=== PATIENT | female | born 1935 | race Two or more races ===

== ENCOUNTER 2021-09-09 22:51 | Inpatient (IN) | payer OTHER ==
[~2021-09-09] VITALS: Ht 152.4 cm; Wt 68.9 kg
--- NOTE | 2021-09-09 23:15 | NUR ---
SUPERVISOR ESTIMATOR AND DRAFTER NOTES PT ARRIVED VIA GURNEY. VS 149/99 HR89, TEMP 100.8 ON 2L OF 02 SAT 97% PT ALSO NOTED WITH COUGH.PT A/O X4 UKRAINIAN SPEAKING ONLY. IV ACCESS ON THE LAC AND RAC 320G S/L. PT SKIN IS WARM TOT HE TOUCH NOTED PT WITH SHIVERING. COOLING MEASURES PROVIDED. DUE TO COVID LIKE SYMPTOMS DR SHAFFER ORDERED PT TO BE TRANSFERRED TO [facility] FOR RULE OUT. WILL ENDORSE CARE TO [facility] NURSE.
[2021-09-09] MEDS ORDERED: ZOLPIDEM TARTRATE 5 MG TABLET PO PRN (23:30)
[2021-09-09] MEDS ORDERED: ONDANSETRON HCL/PF 4 MG/2 ML VIAL IVP PRN (23:30)
[2021-09-09] MEDS ORDERED: MAGNESIUM HYDROXIDE 30 ML UDC PO PRN (23:30)
[2021-09-09] MEDS ORDERED: Z GUARD REMEDY 4 OZ OINT TP PRN (23:30)
[2021-09-09] MEDS ORDERED: MAG HYDROX/AL HYDROX/SIMETH 30 ML UDC PO PRN (23:30)
[2021-09-10 00:05] LABS: BASOPHILS % (AUTO) 0.2 % (0.0-2.0); HEMATOCRIT 40 % (33-45); LYMPHOCYTES # (AUTO) 0.5 K/uL (0.8-4.8); LYMPHOCYTES % (AUTO) 2.7 % (20.0-44.0); MEAN CORPUSCULAR HGB CONC 33 g/dl (31.0-36.0); MEAN CORPUSCULAR VOLUME 94 fL (82-100); MONOCYTES # (AUTO) 1.1 K/uL (0.1-1.30); MONOCYTES % (AUTO) 5.9 % (2.0-12.0); NEUTROPHILS # (AUTO) 17.2 K/uL (1.8-8.9); NEUTROPHILS % (AUTO) 91.2 % (43.0-81.0); PLATELET COUNT (AUTO) 157 K/uL (150-450); RED BLOOD CELL COUNT(AUTO) 4.21 MIL/uL (4.0-5.2); WHITE BLOOD COUNT (AUTO) 18.8 K/uL (4.3-11.0)
[2021-09-10 00:10] VITALS: BP 124/63
[2021-09-10] MEDS ORDERED: IV NS 0.9% 1,000 ML IV ONE (00:30)
[2021-09-10] MEDS ORDERED: LEVOFLOXACIN 500 MG /D5W 100ML 100 ML IV ONE (00:34)
[2021-09-10 00:44] LABS: ALANINE AMINOTRANSFERASE 572 U/L (12-78); ALBUMIN 2.5 g/dL (3.4-5.0); ALKALINE PHOSPHATASE 222 U/L (46-116); ASPARTATE AMINOTRANSFERASE 487 U/L (15-37); BILIRUBIN,TOTAL 3.4 mg/dL (0.2-1.0); CALCIUM, SERUM 7.6 mg/dL (8.5-10.1); CARBON DIOXIDE 26 mmol/L (21-32); CHLORIDE 101 mmol/L (98-107); CREATININE 0.8 mg/dL (0.6-1.3); GLUCOSE 135 mg/dL (74-106); LIPASE 35 U/L (73-393); POTASSIUM 3.7 mmol/L (3.5-5.1); SODIUM SERUM 134 mmol/L (136-145); TOTAL PROTEIN, SERUM 5.9 g/dL (6.4-8.2); UREA NITROGEN, BLOOD 10 mg/dL (7-18)
--- NOTE | 2021-09-10 00:51 | NUR ---
RN NOTE 0005 PT AWAKE AOX3, TURKISH SPEAKING. DENIES ANY SOB. ON O2 AT 2L SATING 98%. NOT IN ANY DISTRESS. PT STATES CHEST PAIN IS BETTER. SKIN INTACT. VS WNL. IV ON RAC AND LAC PATENT AND INTACT. HOOKED TO TELE MONITOR SR WITH OCCASIONAL PVCS HR 96. DR SHAFFER AT BEDSIDE. ORIENTED PT TO BED OPERATION AND CALL LIGHT. COVID PRECAUTION IN PLACE. WILL CONTINUE TO MONITOR.
[2021-09-10] MEDS: LEVOFLOXACIN 500 MG /D5W 100ML 500 MG in PREMIX 1 EA IV SCH (01:51)
[2021-09-10] MEDS: ENOXAPARIN SODIUM 40 MG/0.4 ML DISP.SYRIN SQ SCH ×2 (01:52→20:21)
--- NOTE | 2021-09-10 03:16 | NUR ---
COVID RAPID POSITIVE. NOTIFIED DR SHAFFER.
[2021-09-10 04:00] VITALS: BP 105/50
--- NOTE | 2021-09-10 06:31 | NUR ---
RN NOTE SPOKE TO PTS IRIS BUTCHER, UPDATES WITH PT CONDITION. PER SON, PT VACCINATED 4X WITH MODERNA
[2021-09-10 06:33] LABS: BASOPHILS % (AUTO) 0.2 % (0.0-2.0); EOSINOPHILS % (AUTO) 0.3 % (0.0-6.0); HEMATOCRIT 38 % (33-45); HEMOGLOBIN 12.4 g/dL (11.5-14.8); LYMPHOCYTES # (AUTO) 1.1 K/uL (0.8-4.8); LYMPHOCYTES % (AUTO) 6.6 % (20.0-44.0); MEAN CORPUSCULAR HGB CONC 33 g/dl (31.0-36.0); MEAN CORPUSCULAR VOLUME 95 fL (82-100); MONOCYTES # (AUTO) 0.7 K/uL (0.1-1.30); MONOCYTES % (AUTO) 4.3 % (2.0-12.0); NEUTROPHILS # (AUTO) 15.3 K/uL (1.8-8.9); NEUTROPHILS % (AUTO) 88.6 % (43.0-81.0); PLATELET COUNT (AUTO) 156 K/uL (150-450); RED BLOOD CELL COUNT(AUTO) 3.98 MIL/uL (4.0-5.2); WHITE BLOOD COUNT (AUTO) 17.3 K/uL (4.3-11.0)
[2021-09-10 07:01] LABS: CARBON DIOXIDE 26 mmol/L (21-32); CHLORIDE 104 mmol/L (98-107); CREATININE 0.7 mg/dL (0.6-1.3); GLUCOSE 107 mg/dL (74-106); MAGNESIUM 1.9 mg/dL (1.8-2.4); PHOSPHORUS 3.8 mg/dL (2.5-4.9); POTASSIUM 3.7 mmol/L (3.5-5.1); SODIUM SERUM 139 mmol/L (136-145); UREA NITROGEN, BLOOD 9 mg/dL (7-18)
--- NOTE | 2021-09-10 07:08 | NUR ---
RN NOTE PT WATCHING TV NOT IN ANY DISTRESS. DENIES ANY CHEST PAIN AT THIS TIME. TOLERATING O2 AT 2L. AFEBRILE SINCE ADMITTED. ON IVFLUIDS OF NS AT 75ML/HR. INFUSING WELL. CALL LIGHT WITHIN REACH AT ALL TIMES, ISOLATION PRECAUTION MAINTAINED. WILL ENDORSE TO NEXT SHIFT NURSE FOR VAL.
--- NOTE | 2021-09-10 07:45 | NUR ---
RN OPENING NOTE PATIENT AWAKE IN BED RESTING, A/O X4. NO S/S OF PAIN NOTED AT THIS TIME. ON 2L OXYGEN, NO DISTRESS OR SHORTNESS OF BREATH NOTED. IV ACCESS RAC #20G, LAC #20G, INTACT, PATENT AND FLUSHING WELL. FALL AND SAFETY MEASURES IN PLACE, BED ALARM ON BED IN LOW AND LOCK POSITION, CALL LIGHT AND TABLE WITHIN EASY REACH, SIDE RAILS UP X2. WILL CONTINUE TO MONITOR.
[2021-09-10 08:00] VITALS: BP 116/62
[2021-09-10 08:20] LABS: CHOLESTEROL 123 mg/dL (<200); LDL 71 mg/dL (0-99); THYROID STIMULATING HORMONE 2.838 uIU/mL (0.358-3.74); TRIGLYCERIDES 41 mg/dL (30-150)
[2021-09-10 08:38] LABS: HDL CHOLESTEROL 52 mg/dL (40-60)
[2021-09-10] MEDS: ASPIRIN 81 MG TAB.CHEW PO SCH (08:58)
[2021-09-10] MEDS: PANTOPRAZOLE 40 MG TABLET.DR PO SCH (08:59)
[2021-09-10] MEDS ORDERED: OMEG1CAP18 PO (09:23)
[2021-09-10] MEDS ORDERED: LOSA25TA27 PO (09:23)
[2021-09-10] MEDS ORDERED: LOSA50TA39 PO (09:23)
[2021-09-10] MEDS ORDERED: MYRBETRIQ PO (09:23)
[2021-09-10] MEDS ORDERED: OMEP40CA21 PO (09:23)
[2021-09-10] MEDS ORDERED: AMLO-213 PO (09:23)
[2021-09-10] MEDS ORDERED: CHOL100043 PO (09:23)
[2021-09-10] MEDS ORDERED: LEVO75TA7 PO (09:23)
[2021-09-10] MEDS ORDERED: ROPI2TAB7 PO (09:23)
[2021-09-10] MEDS ORDERED: DULO20CA19 PO (09:23)
[2021-09-10] MEDS ORDERED: MAGN400T26 PO (09:23)
[2021-09-10] MEDS ORDERED: ALBU2.5V38 INH (09:23)
[2021-09-10] MEDS ORDERED: CALC500T52 PO (09:23)
[2021-09-10] MEDS ORDERED: ASPI-1169 PO (09:23)
[2021-09-10] MEDS ORDERED: FLUT1BLS6 INH (09:23)
[2021-09-10] MEDS ORDERED: LORA10TA7 PO (09:23)
[2021-09-10] MEDS ORDERED: ESCI10TA PO (09:23)
[2021-09-10] MEDS ORDERED: SOLI10TA7 PO (09:23)
[2021-09-10] MEDS ORDERED: NINT100C PO (09:23)
[2021-09-10 09:31] LABS: ALBUMIN 2.4 g/dL (3.4-5.0); BILIRUBIN,DIRECT 4.2 mg/dL (0.0-0.2); BILIRUBIN,TOTAL 5.1 mg/dL (0.2-1.0); TOTAL PROTEIN, SERUM 5.6 g/dL (6.4-8.2)
[2021-09-10 12:00] VITALS: BP 118/55
[2021-09-10 16:00] VITALS: BP 125/61
--- NOTE | 2021-09-10 18:42 | NUR ---
RN CLOSING NOTE PATIENT AWAKE IN BED RESTING, A/O X4. NO S/S OF PAIN NOTED AT THIS TIME. ON 2L OXYGEN, NO DISTRESS OR SHORTNESS OF BREATH NOTED. IV ACCESS RAC #20G, LAC #20G, INTACT, PATENT AND FLUSHING WELL. ALL SCHEDULED MEDICATIONS ADMINISTERED. FALL AND SAFETY MEASURES IN PLACE, BED ALARM ON BED IN LOW AND LOCK POSITION, CALL LIGHT AND TABLE WITHIN EASY REACH, SIDE RAILS UP X2. WILL ENDORSE TO PRODUCTION LABORER.
--- NOTE | 2021-09-10 19:49 | NUR ---
COMPOUNDING AND FINISHING SUPERVISOR OPENING NOTE RECEIVED PATIENT AWAKE IN BED RESTING, A/O X4. ROMANSH SPEAKING, NO S/S OF PAIN NOTED AT THIS TIME. ON 2L OXYGEN, NO DISTRESS OR SHORTNESS OF BREATH NOTED. IV ACCESS RAC #20G INTACT, PATENT, AND FLUSHING WELL AND ON LAC #20G INFILTRATION NOTED, FALL AND SAFETY MEASURES IN PLACE, CALL LIGHT WITHIN REACH, BED ALARM ON, BED IN LOWEST AND LOCKED POSITION, SIDE RAILS UP X2. WILL CONTINUE TO MONITOR THROUGHOUT THE SHIFT.
[2021-09-10 20:00] VITALS: BP 124/69
--- NOTE | 2021-09-10 20:10 | NUR ---
RN NOTE NOTED PT WITH FEVER AT 101, TYLENOL GIVEN PRN ORDER AND COOLING MEASURES DONE. WILL CONT TO MONITOR.
[2021-09-10] MEDS: ACETAMINOPHEN 325 MG TABLET PO PRN (20:18)
--- NOTE | 2021-09-10 20:40 | NUR ---
RN NOTE RECHECKED TEMPERATURE RESULTED AT 99.3. ALL DUE MEDS GIVEN, NO S/SX OF DISTRESS OR DISCOMFORT THIS TIME. WILL CONTINUE TO MONITOR.
[2021-09-11] VITALS: BP 107/58
[2021-09-11] MEDS: LEVOFLOXACIN 500 MG /D5W 100ML 500 MG in PREMIX 1 EA IV SCH (01:11)
[2021-09-11 04:00] VITALS: BP 107/60
--- NOTE | 2021-09-11 05:41 | NUR ---
RN NOTE telephone call from Param ALEX of [place], said he needs to fax blood culture results for patient, provided him with [facility] fax number. primary RN made aware
--- NOTE | 2021-09-11 06:22 | NUR ---
SINGLE STROKE PREFORMER CLOSING NOTE PATIENT AWAKE IN BED RESTING, A/O X4. SOUTH SUDANESE SPEAKING, ON 2L OXYGEN TOLERATING WELL, NO DISTRESS OR SHORTNESS OF BREATHING. IV ACCESS ON RAC #20G INTACT AND PATENT, ALL DUE MEDS GIVEN, KEPT DRY AND CLEAN, MAINTAINS ISOLATION PRECAUTION, V/S TAKEN AND RECORDED, CALL LIGHT WITHIN REACH, BED ALARM ON, BED IN LOWEST AND LOCKED POSITION, SIDE RAILS UP X2. WILL ENDORSE TO AM SHIFT NURSE.
[2021-09-11 06:43] LABS: BASOPHILS % (AUTO) 0.2 % (0.0-2.0); EOSINOPHILS % (AUTO) 1.2 % (0.0-6.0); HEMATOCRIT 38 % (33-45); HEMOGLOBIN 12.2 g/dL (11.5-14.8); LYMPHOCYTES # (AUTO) 0.6 K/uL (0.8-4.8); LYMPHOCYTES % (AUTO) 6.5 % (20.0-44.0); MEAN CORPUSCULAR HGB CONC 32 g/dl (31.0-36.0); MEAN CORPUSCULAR VOLUME 96 fL (82-100); MONOCYTES # (AUTO) 0.6 K/uL (0.1-1.30); MONOCYTES % (AUTO) 6.4 % (2.0-12.0); NEUTROPHILS # (AUTO) 7.3 K/uL (1.8-8.9); NEUTROPHILS % (AUTO) 85.7 % (43.0-81.0); PLATELET COUNT (AUTO) 133 K/uL (150-450); RED BLOOD CELL COUNT(AUTO) 3.93 MIL/uL (4.0-5.2); WHITE BLOOD COUNT (AUTO) 8.6 K/uL (4.3-11.0)
[2021-09-11 07:17] LABS: ALANINE AMINOTRANSFERASE 289 U/L (12-78); ALBUMIN 2.2 g/dL (3.4-5.0); ALKALINE PHOSPHATASE 185 U/L (46-116); ASPARTATE AMINOTRANSFERASE 102 U/L (15-37); BILIRUBIN,TOTAL 4.2 mg/dL (0.2-1.0); CHLORIDE 105 mmol/L (98-107); POTASSIUM 3.6 mmol/L (3.5-5.1); SODIUM SERUM 139 mmol/L (136-145); TOTAL PROTEIN, SERUM 5.8 g/dL (6.4-8.2)
[2021-09-11 08:00] VITALS: BP 128/55
[2021-09-11 08:09] LABS: FERRITIN 274 ng/mL (8-388)
--- NOTE | 2021-09-11 08:15 | NUR ---
RN NOTE PT RECEIVED IN BED, ALERT AND VERBALLY RESPONSIVE. ON O2 @2L VIA NC, TOLERATING WELL. NO COMPLAINTS OF PAIN AND DISCOMFORT. WITH IV ACCESS ON RAC G20 WITH NO FLUIDS RUNNING. SAFETY MEASURES FOLLOWED. WILL CONTINUE TO MONITOR.
[2021-09-11] MEDS: PANTOPRAZOLE 40 MG TABLET.DR PO SCH (08:20)
[2021-09-11] MEDS: ASPIRIN 81 MG TAB.CHEW PO SCH (08:20)
[2021-09-11 09:50] LABS: CALCIUM, SERUM 8.2 mg/dL (8.5-10.1); CARBON DIOXIDE 24 mmol/L (21-32); CREATININE 0.6 mg/dL (0.6-1.3); GLUCOSE 110 mg/dL (74-106); MAGNESIUM 2.1 mg/dL (1.8-2.4); PHOSPHORUS 2.7 mg/dL (2.5-4.9); UREA NITROGEN, BLOOD 10 mg/dL (7-18)
[2021-09-11 12:00] VITALS: BP 135/65
[2021-09-11] MEDS: HYDROCODONE/APAP 5/325MG TABLET PO PRN (15:55)
[2021-09-11 16:00] VITALS: BP 150/65
--- NOTE | 2021-09-11 17:28 | NUR ---
RN NOTE PT COMPLAINED OF CHEST TIGHTNESS RADIATING TO BACK AND GETS AGGRAVATED WHEN COUGHING. V/S TAKEN AND WITHIN NORMAL LIMITS. PT SHOWS SINUS R IN MONITOR. PMD MADE AWARE. NEW ORDERS GIVEN NORCO 5-325 Q6H FOR MILD-MOD PAIN. PRN GIVEN WITH POSITIVE EFFECT. WILL CONTINUE TO MONITOR.
--- NOTE | 2021-09-11 19:15 | NUR ---
RN NOTES RECEIVED PT FOR CONTINUITY OF CARE. PATIENT A/OX4 IN NO S/SX OF ACUTE DISTRESS AT THIS TIME; CURRENTLY ON ROOM AIR ; WITH 02 SAT >95% AT THIS TIME. IV ACCESS, PATENT AND INTACT. WILL ENSURE SAFETY MEASURES WITHIN THE SHIFT. PATIENT BED ALARM IS ON. HEAD OF BED ELEVATED. BED IS LOCKED, IN LOWEST POSITION AND SIDE RAILS UP. CALL LIGHT WITHIN REACH OF THE PATIENT. APPLICABLE ISOLATION PRECAUTIONS IN PLACE. WILL CONTINUE TO MONITOR AND REASSESS FOR ANY CHANGES AND WILL CARRY OUT ANY ONGOING AND ACTIVE MD ORDER.
[2021-09-11 20:00] VITALS: BP 148/79
[2021-09-11] MEDS: ENOXAPARIN SODIUM 40 MG/0.4 ML DISP.SYRIN SQ SCH (21:46)
[2021-09-12] VITALS: BP 145/80
[2021-09-12] MEDS: LEVOFLOXACIN 500 MG /D5W 100ML 500 MG in PREMIX 1 EA IV SCH (02:07)
[2021-09-12 04:00] VITALS: BP 141/65
--- NOTE | 2021-09-12 04:00 | NUR ---
PATIENT REMAINED TO BE IN NO SIGNS OF ACUTE RESPIRATORY DISTRESS , SAFE ENVIRONMENT MAINTAINED FOR PT AND AM PATIENT CARE DONE. WILL CONTINUE TO MONITOR AND REASSESS FOR ANY CHANGES THROUGHOUT THE SHIFT.
--- NOTE | 2021-09-12 06:28 | NUR ---
RN CLOSING NOTE: PATIENT REMAINS IN ROOM IN NO SIGNS OF RESPIRATORY DISTRESS, PATIENT STILL ROOM AIR ;TOLERATING WELL SATURATING @ >95% SP02. SAFETY MEASURES IMPLEMENTED, BED IN LOWEST POSITION, LOCKED, SIDE RAILS UP, CALL LIGHT WITHIN REACH. ALL NEEDS AND ORDERS ADDRESSED DURING THE SHIFT. IV ACCESS MAINTAINED INTACT, SECURED AND FLUSHING WELL. ALL DUE MEDS GIVEN ORDERED & SCHEDULED ; PATIENT TOLERATED WELL. PATIENT KEPT CLEAN AND COMFORTABLE WITHIN THE SHIFT. PATIENT ENDORSED TO INCOMING SHIFT RN WITH STABLE VITAL SIGN AND FOR CONTINUITY OF CARE.
[2021-09-12 07:03] LABS: BASOPHILS % (AUTO) 0.2 % (0.0-2.0); EOSINOPHILS % (AUTO) 0.3 % (0.0-6.0); HEMATOCRIT 42 % (33-45); HEMOGLOBIN 13.6 g/dL (11.5-14.8); LYMPHOCYTES # (AUTO) 0.7 K/uL (0.8-4.8); LYMPHOCYTES % (AUTO) 6.2 % (20.0-44.0); MEAN CORPUSCULAR HGB CONC 33 g/dl (31.0-36.0); MEAN CORPUSCULAR VOLUME 95 fL (82-100); MONOCYTES # (AUTO) 0.5 K/uL (0.1-1.30); MONOCYTES % (AUTO) 4.1 % (2.0-12.0); NEUTROPHILS # (AUTO) 10.2 K/uL (1.8-8.9); NEUTROPHILS % (AUTO) 89.2 % (43.0-81.0); PLATELET COUNT (AUTO) 157 K/uL (150-450); RED BLOOD CELL COUNT(AUTO) 4.38 MIL/uL (4.0-5.2); WHITE BLOOD COUNT (AUTO) 11.4 K/uL (4.3-11.0)
[2021-09-12 07:05] LABS: SERUM AMMONIA 29 umol/L (11-32)
[2021-09-12 07:24] LABS: ALANINE AMINOTRANSFERASE 221 U/L (12-78); ALBUMIN 2.4 g/dL (3.4-5.0); ALKALINE PHOSPHATASE 209 U/L (46-116); ASPARTATE AMINOTRANSFERASE 81 U/L (15-37); CALCIUM, SERUM 8.2 mg/dL (8.5-10.1); CARBON DIOXIDE 27 mmol/L (21-32); CHLORIDE 103 mmol/L (98-107); CREATININE 0.6 mg/dL (0.6-1.3); GLUCOSE 124 mg/dL (74-106); PHOSPHORUS 3.8 mg/dL (2.5-4.9); POTASSIUM 3.5 mmol/L (3.5-5.1); SODIUM SERUM 138 mmol/L (136-145); TOTAL PROTEIN, SERUM 6.2 g/dL (6.4-8.2); UREA NITROGEN, BLOOD 13 mg/dL (7-18)
--- NOTE | 2021-09-12 07:40 | NUR ---
RN open note PATIENT IS IN BED SLEEPING WITH SUE SIGHNS OF THE DISTRESS, OR ROOM AIR , ALERT , ORIENTED TIMES 4, SLOVENIAN SPEAKING .PATIENT IS ON BED REST , SKIN INTACT , HAS IV ACCESS ON r ac PATIENT REMAINS IN ROOM IN NO SIGNS OF RESPIRATORY DISTRESS, PATIENT STILL ROOM AIR ;TOLERATING WELL SATURATING @ >95% SP02. SAFETY MEASURES IMPLEMENTED, BED IN LOWEST POSITION, LOCKED, SIDE RAILS UP, CALL LIGHT WITHIN REACH. ALL NEEDS AND ORDERS ADDRESSED DURING THE SHIFT. IV ACCESS MAINTAINED INTACT, SECURED AND FLUSHING WELL. ALL DUE MEDS GIVEN ORDERED & SCHEDULED ; PATIENT TOLERATED WELL. PATIENT KEPT CLEAN AND COMFORTABLE WITHIN THE SHIFT. PATIENT ENDORSED TO INCOMING SHIFT RN WITH STABLE VITAL SIGN AND FOR CONTINUITY OF CARE. Addendum: 09/12/21 at 0746 by TAY VERGARA RN IV ACCESS ON THE R AC 20 G , PATIENT IS COVID POSITIVE .BED IS AT LOWEST POSITION , CALL LIGHT WITHIN REACH , SIDE RAILS ARE UP .WILL CONTINUE TO MONITOR .
[2021-09-12 08:00] VITALS: BP 146/79
[2021-09-12] MEDS: PANTOPRAZOLE 40 MG TABLET.DR PO SCH (08:05)
[2021-09-12] MEDS: ASPIRIN 81 MG TAB.CHEW PO SCH (08:05)
[2021-09-12] MEDS: HYDROCODONE/APAP 5/325MG TABLET PO PRN (08:14)
[2021-09-12 12:00] VITALS: BP 146/79
[2021-09-12] MEDS: AMLODIPINE BESYLATE 10 MG TABLET PO SCH (15:53)
[2021-09-12 16:00] VITALS: BP 149/69
[2021-09-12] MEDS: LOSARTAN POTASSIUM 25 MG TABLET PO SCH (17:20)
--- NOTE | 2021-09-12 18:40 | NUR ---
PATIENT IS ALERT , ORIENTED TIMES 4 ,.PATIENT IS AT 2 L OF THE O2 VIA N/C , OXYGEN SATURATION 98 % , SR 106 ,PATIENT IS BREATHING UNLABORED , NO SIGHNS OF DISTRESS, PATIENT RECEIVED ALL THE MEDICATIONS PER MD ORDER ..SKIN INTACT NO PRESSURES SORES , NO OPEN WOUNDS . PATIENT INCONTINENT , USING DIPER, CURRENTLY ON CARDIAC DIET. HAS IV ACCESS AT RAC 20 GAIT OPEN , SKIN AROUND THE IV SITE INTACT .BED IS AT THE LOWEST POSITION, CALL LIGHT WITHIN REACH , BED SIDE RAILS ARE UP ALL SAFETY MEASURES IMPLEMENTED .
--- NOTE | 2021-09-12 19:30 | NUR ---
BILLIARD TABLE ASSEMBLER OPENING NOTES RECEIVED PT IN BED, A/O X 4, SPEAKS AZERI BUT CAN UNDERSTAND AND SPEAK A BIT OF HEBREW. ABLE TO MAKE NEEDS KNOWN. CURRENTLY ON ROOM AIR; TOLERATING WELL WITH NO S/SX OF ACUTE DISTRESS NOTED AT THIS TIME; 02 SAT IS 98% AT THIS TIME. ON TELE MONITOR SHOWING SINUS TACHY WITH HR IN THE 100s. WILL MONITOR CLOSELY. IV ACCESS NOTED IN RAC, #20g, PATENT AND INTACT. ALL SAFETY MEASURES IN PLACE: PATIENT BED ALARM IS ON. HEAD OF BED ELEVATED. BED IS LOCKED, IN LOWEST POSITION; SIDE RAILS UP X 2. CALL LIGHT WITHIN REACH. WILL CONTINUE TO MONITOR AND REASSESS FOR ANY CHANGES.
[2021-09-12] MEDS: ACETAMINOPHEN 325 MG TABLET PO PRN (19:57)
[2021-09-12 20:00] VITALS: BP 159/79
[2021-09-12] MEDS: ENOXAPARIN SODIUM 40 MG/0.4 ML DISP.SYRIN SQ SCH (20:45)
[2021-09-13] VITALS: BP 151/74
[2021-09-13] MEDS: LEVOFLOXACIN 500 MG /D5W 100ML 500 MG in PREMIX 1 EA IV SCH (01:19)
[2021-09-13 04:00] VITALS: BP 134/74
--- NOTE | 2021-09-13 06:47 | NUR ---
AUTO TIRE RECAPPER CLOSING NOTE: PATIENT REMAINED STABLE THROUGHOUT THE NIGHT. IN ROOM AIR WITH NO SIGNS OF RESPIRATORY DISTRESS NOTED. O2 SAT IS AT 98%. ON TELE MONITOR SHOWING ST WITH HR IN THE 100s. PT TOLERATED WELL. IV ACCESS PATENT AND INTACT, SECURED AND FLUSHING WELL. ALL DUE MEDS GIVEN. KEPT CLEAN AND COMFORTABLE WITHIN THE SHIFT. ALL SAFETY MEASURES IMPLEMENTED: BED IN LOWEST POSITION, LOCKED, SIDE RAILS UP, CALL LIGHT WITHIN REACH. WILL ENDORSE TO AM SHIFT NURSE FOR VAL.
[2021-09-13 06:55] LABS: BASOPHILS % (AUTO) 0.3 % (0.0-2.0); EOSINOPHILS % (AUTO) 0.7 % (0.0-6.0); HEMATOCRIT 38 % (33-45); HEMOGLOBIN 12.6 g/dL (11.5-14.8); LYMPHOCYTES % (AUTO) 7.9 % (20.0-44.0); MEAN CORPUSCULAR HGB CONC 33 g/dl (31.0-36.0); MEAN CORPUSCULAR VOLUME 94 fL (82-100); MONOCYTES # (AUTO) 0.8 K/uL (0.1-1.30); NEUTROPHILS # (AUTO) 10.2 K/uL (1.8-8.9); NEUTROPHILS % (AUTO) 84.1 % (43.0-81.0); PLATELET COUNT (AUTO) 157 K/uL (150-450); RED BLOOD CELL COUNT(AUTO) 4.01 MIL/uL (4.0-5.2); WHITE BLOOD COUNT (AUTO) 12.1 K/uL (4.3-11.0)
[2021-09-13 07:12] LABS: ALBUMIN 2.1 g/dL (3.4-5.0); BILIRUBIN,TOTAL 2.7 mg/dL (0.2-1.0); CALCIUM, SERUM 8.1 mg/dL (8.5-10.1); CREATININE 0.6 mg/dL (0.6-1.3); MAGNESIUM 1.8 mg/dL (1.8-2.4); PHOSPHORUS 3.5 mg/dL (2.5-4.9); POTASSIUM 3.2 mmol/L (3.5-5.1); TOTAL PROTEIN, SERUM 6.1 g/dL (6.4-8.2)
--- NOTE | 2021-09-13 07:31 | NUR ---
RN NOTES RESTING IN BED, EYES CLOSED, ABLE TO BE AWAKENED. ZAMBIAN-SPEAKING, ABLE TO MAKE NEEDS KNOWN. BREATHING EVEN AND UNLABORED, NOT IN ACUTE DISTRESS. ISOLATION PRECS OBSERVED. SAFETY PRECS IN PLACE.
[2021-09-13 08:00] VITALS: BP 142/76
[2021-09-13] MEDS: ESCITALOPRAM OXALATE (10 MG) 10 MG TABLET PO SCH (08:08)
[2021-09-13] MEDS: CALCIUM CARBONATE (1250) 500 MG TABLET PO SCH (08:08)
[2021-09-13] MEDS: DULOXETINE HCL 20 MG CAPSULE.DR PO SCH (08:08)
[2021-09-13] MEDS: ropiniROLE 0.5 MG TABLET PO SCH (08:08)
[2021-09-13] MEDS: LEVOTHYROXINE SODIUM 75 MCG TABLET PO SCH (08:09)
[2021-09-13] MEDS: ASPIRIN 81 MG TAB.CHEW PO SCH (08:09)
[2021-09-13] MEDS: AMLODIPINE BESYLATE 10 MG TABLET PO SCH (08:09)
[2021-09-13] MEDS: PANTOPRAZOLE 40 MG TABLET.DR PO SCH (08:09)
[2021-09-13] MEDS: LOSARTAN POTASSIUM 50 MG TABLET PO SCH (08:09)
[2021-09-13] MEDS ORDERED: ASPIRIN 81 MG TAB.CHEW PO SCH (09:00)
--- NOTE | 2021-09-13 09:05 | NUR ---
RN NOTES SPOKE W/ PATIENT'S SON OVER THE PHONE AND UPDATED ABOUT PATIENT'S CONDITION/PROGRESS; PER SON, HE WOULD LIKE TO SPEAK W/ MD FOR UPDATES.
--- NOTE | 2021-09-13 09:25 | NUR ---
RN NOTES PATIENT CURRENTLY EATING BREAKFAST IN BED. STATED THAT SON SPOKE W/ HER ALREADY.
[2021-09-13 12:00] VITALS: BP 143/62
[2021-09-13] MEDS ORDERED: POTASSIUM CHLORIDE 20 MEQ TAB.PRT.SR PO SCH (12:00)
--- NOTE | 2021-09-13 12:15 | NUR ---
RN NOTES SEEN BY ASSISTANT DIRECTOR OF ADMISSIONS TODAY; ORDER FOR CXR IN AM. WILL TRY TO WEAN OFF O2.
--- NOTE | 2021-09-13 12:50 | NUR ---
RN NOTES PATIENT SEEN BY DR. LAWSON W/ [facility] FOR MRCP. PROVIDED HADLEY'S, SON, CONTACT INFORMATION TO MD TO SPEAK W/ SON.
--- NOTE | 2021-09-13 13:52 | NUR ---
RN NOTES SON IN THE HOSPITAL FOR WINDOW VISIT. MADE AWARE OF PLAN OF CARE PER DR. LAWSON. PER SON, PATIENT IS ASKING IF ANTI-ANXIETY MEDICATION CAN BE GIVEN BEFORE MRCP TO CALM PATIENT DOWN. WILL INFORM MD APPLICABLE AND ENDORSE ACCORDINGLY.
[2021-09-13 16:00] VITALS: BP 128/78
[2021-09-13] MEDS: LOSARTAN POTASSIUM 25 MG TABLET PO SCH (17:45)
--- NOTE | 2021-09-13 18:39 | NUR ---
RN NOTES MRI QUESTIONNAIRE IN THE CHART. ABLE TO EAT SERVED MEALS DURING THE DAY. BREATHING EVEN AND UNLABORED. ISOLATION PRECS MAINTAINED. ASSISTED W/ ADL'S TOLERATED. SAFETY MEASURES MAINTAINED.
--- NOTE | 2021-09-13 19:30 | NUR ---
BULL DRIVER OPENING NOTES RECEIVED PT IN BED, A/O X 4, SPEAKS HUNGARIAN BUT CAN UNDERSTAND AND SPEAK A BIT OF KINYARWANDA. ABLE TO MAKE NEEDS KNOWN. CURRENTLY ON ROOM AIR; TOLERATING WELL WITH NO S/SX OF ACUTE DISTRESS NOTED AT THIS TIME; 02 SAT IS 98% AT THIS TIME. ON TELE MONITOR SHOWING SINUS TACHY WITH HR IN THE 100s. WILL MONITOR CLOSELY. IV ACCESS NOTED IN RAC, #20g, PATENT AND INTACT. ALL SAFETY MEASURES IN PLACE: PATIENT BED ALARM IS ON. HEAD OF BED ELEVATED. BED IS LOCKED, IN LOWEST POSITION; SIDE RAILS UP X 2. CALL LIGHT WITHIN REACH. WILL CONTINUE TO MONITOR AND REASSESS FOR ANY CHANGES.
[2021-09-13 20:00] VITALS: BP 149/74
[2021-09-13] MEDS: ENOXAPARIN SODIUM 40 MG/0.4 ML DISP.SYRIN SQ SCH (21:13)
[2021-09-14] VITALS: BP 148/68
[2021-09-14] MEDS: LEVOFLOXACIN 500 MG /D5W 100ML 500 MG in PREMIX 1 EA IV SCH (03:05)
[2021-09-14 04:00] VITALS: BP 158/71
[2021-09-14 07:21] LABS: BASOPHILS % (AUTO) 0.1 % (0.0-2.0); EOSINOPHILS % (AUTO) 1.1 % (0.0-6.0); HEMATOCRIT 36 % (33-45); LYMPHOCYTES % (AUTO) 6.7 % (20.0-44.0); MEAN CORPUSCULAR HGB CONC 33 g/dl (31.0-36.0); MEAN CORPUSCULAR VOLUME 93 fL (82-100); MONOCYTES # (AUTO) 1.2 K/uL (0.1-1.30); MONOCYTES % (AUTO) 8.2 % (2.0-12.0); NEUTROPHILS # (AUTO) 12.3 K/uL (1.8-8.9); NEUTROPHILS % (AUTO) 83.9 % (43.0-81.0); PLATELET COUNT (AUTO) 182 K/uL (150-450); RED BLOOD CELL COUNT(AUTO) 3.84 MIL/uL (4.0-5.2); WHITE BLOOD COUNT (AUTO) 14.7 K/uL (4.3-11.0)
[2021-09-14] MEDS: PANTOPRAZOLE 40 MG TABLET.DR PO SCH (07:30)
[2021-09-14] MEDS: LEVOTHYROXINE SODIUM 75 MCG TABLET PO SCH (07:30)
--- NOTE | 2021-09-14 07:30 | NUR ---
RN OPENING NOTE PATIENT IS IN BED IN SEMI-ELISE'S POSITION, AWAKE, ALERT AND ORIENTED X 4. IRISH SPEAKING ONLY, INTERPRETATION BY RONNY ANDRES. ON ROOM AIR WITH 02 SATURATION AT 96%. SINUS TACHYCARDIA AT 107 BPM ON FORESTRY FOREMAN. WITH RIGHT ANTECUBITAL SALINE LOCK GAUGE 20 INTACT AND PATENT. DENIES PAIN, BREATHING UNLABORED. BED IS LOCKED IN LOWEST POSITION, 3 SIDE RAILS UP, CALL LIGHT WITHIN REACH. WILL CONTINUE TO MONITOR THROUGHOUT SHIFT.
[2021-09-14 07:44] LABS: ALANINE AMINOTRANSFERASE 106 U/L (12-78); ALKALINE PHOSPHATASE 238 U/L (46-116); ASPARTATE AMINOTRANSFERASE 34 U/L (15-37); BILIRUBIN,TOTAL 1.8 mg/dL (0.2-1.0); CALCIUM, SERUM 8.4 mg/dL (8.5-10.1); CARBON DIOXIDE 28 mmol/L (21-32); CHLORIDE 98 mmol/L (98-107); CREATININE 0.5 mg/dL (0.6-1.3); GLUCOSE 114 mg/dL (74-106); MAGNESIUM 1.9 mg/dL (1.8-2.4); SODIUM SERUM 134 mmol/L (136-145); TOTAL PROTEIN, SERUM 6.1 g/dL (6.4-8.2); UREA NITROGEN, BLOOD 10 mg/dL (7-18)
[2021-09-14 08:00] VITALS: BP 159/75
[2021-09-14] MEDS: ASPIRIN 81 MG TAB.CHEW PO SCH (09:00)
[2021-09-14] MEDS: ESCITALOPRAM OXALATE (10 MG) 10 MG TABLET PO SCH (09:00)
[2021-09-14] MEDS: AMLODIPINE BESYLATE 10 MG TABLET PO SCH (09:00)
[2021-09-14] MEDS: CALCIUM CARBONATE (1250) 500 MG TABLET PO SCH (09:00)
[2021-09-14] MEDS: ropiniROLE 0.5 MG TABLET PO SCH (09:00)
[2021-09-14] MEDS: DULOXETINE HCL 20 MG CAPSULE.DR PO SCH (09:00)
[2021-09-14] MEDS: LOSARTAN POTASSIUM 50 MG TABLET PO SCH (09:00)
[2021-09-14] MEDS ORDERED: POTASSIUM CHLORIDE 20 MEQ TAB.PRT.SR PO SCH ×2 (11:00→15:00)
[2021-09-14 12:00] VITALS: BP 172/69
[2021-09-14] MEDS ORDERED: hydrALAZINE HCL IV 20 MG VIAL IV ONE (12:00)
--- NOTE | 2021-09-14 12:00 | NUR ---
RN NOTE BP AT 172/69. AUTOMATIC HEAD SAWYER FRANCK NEWELL INFORMED. HYDRALAZINE IV 10 MG GIVEN ORDERED. WILL RECHECK BP AFTER 30 MIN.
--- NOTE | 2021-09-14 12:30 | NUR ---
RN NOTE BP RECHECKED 148/63. PATIENT PICKED UP BY RADIOLOGY DEPARTMENT STAFF FOR MRCP.
--- NOTE | 2021-09-14 13:15 | NUR ---
RN NOTE RECEIVED PATIENT FROM RADIOLOGY DEPARTMENT POST MRCP. NOT IN ANY FORM OF DISTRESS. IV SITE DISLODGED. WILL ATTEMPT TO REINSERT IV.
--- NOTE | 2021-09-14 14:00 | NUR ---
RN NOTE RIGHT ANTECUBITAL IV OUT. REINSERTED IV GAUGE 20 ON RIGHT FOREARM.
--- NOTE | 2021-09-14 14:30 | NUR ---
RN NOTE EPISODE OF VOMITING NOTED. BLOOD PRESSURE 130/70. MONITORED CLOSELY.
[2021-09-14 16:00] VITALS: BP 112/76
--- NOTE | 2021-09-14 17:00 | NUR ---
RN NOTE NO EPISODE OF VOMITING NOTED. PATIENTS STATES SHE IS NOT NAUSEOUS AND DOES NOT NEED ANTI-EMETIC FOR NOW.
[2021-09-14] MEDS: LOSARTAN POTASSIUM 25 MG TABLET PO SCH (18:01)
--- NOTE | 2021-09-14 18:49 | NUR ---
RN CLOSING NOTE PATIENT IS IN BED ASLEEP, WITH OXYGEN VIA NASAL CANNULA AT 2 L/MIN AND WITH 96% O2 SATURATION. PATIENT REMAINED STABLE THROUGHOUT SHIFT, DENIES PAIN, BREATHING UNLABORED. RIGHT FOREARM IV SALINE LOCK INTACT AND PATENT. KEPT COMFORTABLE AND CLEAN. ALL HOSPITAL PRECAUTIONS IN PLACE. BED IS LOCKED IN LOWEST POSITION, 3 SIDE RAILS UP, CALL LIGHT WITHIN REACH. WILL ENDORSE TO ENGINEER GAS PUMPING STATION NURSE.
--- NOTE | 2021-09-14 19:34 | NUR ---
DEBATE DIRECTOR OPENING NOTES RECEIVED PT IN BED SLEEPING BUT EASILY AROUSABLE TO TOUCH AND VOICE, A/O X 4, LATVIAN SPEAKING. ABLE TO MAKE NEEDS KNOWN. CURRENTLY ON ROOM AIR, TOLERATING WELL WITH NO S/SX OF ACUTE DISTRESS NOTED AT THIS TIME, ON TELE MONITORING. WITH IV ACCESS NOTED IN R FOREARM #20g, PATENT AND INTACT. ALL SAFETY MEASURES IN PLACE, CALL LIGHT WITHIN REACH. BED ALARM IS ON. BED IS LOCKED AND IN LOWEST POSITION, SIDE RAILS UP X 2. WILL CONTINUE TO MONITOR THROUGHOUT THE SHIFT.
[2021-09-14 20:00] VITALS: BP 157/81
[2021-09-14] MEDS: ENOXAPARIN SODIUM 40 MG/0.4 ML DISP.SYRIN SQ SCH (20:47)
[2021-09-15] VITALS: BP 148/85
[2021-09-15] MEDS: LEVOFLOXACIN 500 MG /D5W 100ML 500 MG in PREMIX 1 EA IV SCH (01:00)
--- NOTE | 2021-09-15 01:45 | NUR ---
RN NOTE RECEIVED REPORT FROM AM SHIFT PT WILL HAVE TO REDO MRCP IN THE MORNING DUE TO MACHINE BREAKDOWN IN THE MIDDLE OF THE PROCEDURE YESTERDAY 09/14. CHARGE NURSE JEFF MADE AWARE, NPO ORDERED FOR BREAKFAST TIL PROCEDURE DONE. WILL CONT TO MONITOR.
[2021-09-15 04:00] VITALS: BP 153/84
--- NOTE | 2021-09-15 06:54 | NUR ---
C UNIX DEVELOPER CLOSING NOTE NO SIGNIFICANT CHANGES THROUGHOUT THE SHIFT. PT IS A/O X 4 CZECH SPEAKING. PT HAS R FOREARM #20G. ON NC 2L, TOLERATING WELL WITH O2 SAT OF 96%. NO SOB NOTED. NO S/SX OF ACUTE DISTRESS NOTED. ALL DUE MEDS GIVEN ORDERED. KEPT DRY AND CLEAN, ALL NEEDS ATTENDED TO. ALL SAFETY MEASURES IMPLEMENTED. BED IN LOWEST POSITION, LOCKED IN PLACE. CALL LIGHT WITHIN REACH. WILL ENDORSE TO AM SHIFT NURSE.
[2021-09-15 07:20] LABS: BASOPHILS % (AUTO) 0.1 % (0.0-2.0); EOSINOPHILS % (AUTO) 1.3 % (0.0-6.0); HEMATOCRIT 36 % (33-45); HEMOGLOBIN 11.6 g/dL (11.5-14.8); LYMPHOCYTES # (AUTO) 0.8 K/uL (0.8-4.8); LYMPHOCYTES % (AUTO) 6.7 % (20.0-44.0); MEAN CORPUSCULAR HGB CONC 33 g/dl (31.0-36.0); MEAN CORPUSCULAR VOLUME 94 fL (82-100); MONOCYTES % (AUTO) 8.1 % (2.0-12.0); NEUTROPHILS # (AUTO) 10.6 K/uL (1.8-8.9); NEUTROPHILS % (AUTO) 83.8 % (43.0-81.0); PLATELET COUNT (AUTO) 209 K/uL (150-450); RED BLOOD CELL COUNT(AUTO) 3.78 MIL/uL (4.0-5.2); WHITE BLOOD COUNT (AUTO) 12.6 K/uL (4.3-11.0)
--- NOTE | 2021-09-15 07:24 | NUR ---
MANAGEMENT PROFESSOR OPENING NOTE RECEIVED PATIENT FROM NIGHTSHIFT RN. CURRENTLY ASLEEP. PT HAS R FOREARM #20G. ON NC 2. NO SOB NOTED. NO S/SX OF ACUTE DISTRESS NOTED. ALL SAFETY MEASURES IMPLEMENTED. BED IN LOWEST POSITION, LOCKED IN PLACE. CALL LIGHT WITHIN REACH. WILL CONTINUE PLAN OF CARE AND ANTICIPATE NEEDS.
[2021-09-15 07:50] LABS: ALANINE AMINOTRANSFERASE 130 U/L (12-78); ALBUMIN 1.9 g/dL (3.4-5.0); ALKALINE PHOSPHATASE 311 U/L (46-116); ASPARTATE AMINOTRANSFERASE 88 U/L (15-37); BILIRUBIN,TOTAL 2.4 mg/dL (0.2-1.0); CALCIUM, SERUM 8.4 mg/dL (8.5-10.1); CARBON DIOXIDE 30 mmol/L (21-32); CHLORIDE 99 mmol/L (98-107); CREATININE 0.5 mg/dL (0.6-1.3); GLUCOSE 111 mg/dL (74-106); MAGNESIUM 1.9 mg/dL (1.8-2.4); POTASSIUM 3.3 mmol/L (3.5-5.1); SODIUM SERUM 135 mmol/L (136-145); UREA NITROGEN, BLOOD 10 mg/dL (7-18)
[2021-09-15 08:00] VITALS: BP 156/71
[2021-09-15] MEDS: PANTOPRAZOLE 40 MG TABLET.DR PO SCH (08:15)
[2021-09-15] MEDS: LEVOTHYROXINE SODIUM 75 MCG TABLET PO SCH (08:15)
[2021-09-15] MEDS: ropiniROLE 0.5 MG TABLET PO SCH (08:19)
[2021-09-15] MEDS: ESCITALOPRAM OXALATE (10 MG) 10 MG TABLET PO SCH (08:19)
[2021-09-15] MEDS: DULOXETINE HCL 20 MG CAPSULE.DR PO SCH (08:19)
[2021-09-15] MEDS: CALCIUM CARBONATE (1250) 500 MG TABLET PO SCH (08:19)
[2021-09-15] MEDS: ASPIRIN 81 MG TAB.CHEW PO SCH (08:19)
[2021-09-15] MEDS: AMLODIPINE BESYLATE 10 MG TABLET PO SCH (08:20)
[2021-09-15] MEDS: LOSARTAN POTASSIUM 50 MG TABLET PO SCH (08:20)
[2021-09-15] MEDS ORDERED: POTASSIUM CHLORIDE 20 MEQ TAB.PRT.SR PO SCH (09:30)
--- NOTE | 2021-09-15 09:30 | NUR ---
BELLSTAND ATTENDANT NOTES DUE MEDS GIVEN
--- NOTE | 2021-09-15 09:40 | NUR ---
SPOKE WITH PATIENTS IRIS BUTCHER ON THE TELEPHONE. PROVIDED HIM INFORMATION ON MOTHERS PLAN OF CARE, SPECIFICALLY HER NPO STATUS IN PREPARATION FOR MRCP. SON ASKED IF HE COULD BRING HER SOME FOOD FROM HOME. TOLD HIM THAT HER NPO STATUS WILL BE DISCONTINUED FOLLOWING MRCP. ALSO INFORMED HIM OF HER CARDIAC DIET AND RECOMMENDED BRINGING HER FOOD LOW IN SALT AND LOW IN FAT.
[2021-09-15 12:00] VITALS: BP 135/77
[2021-09-15] MEDS ORDERED: LORAZEPAM INJ 2 MG/ML VIAL IV ONE ×2 (13:00→16:30)
--- NOTE | 2021-09-15 13:15 | NUR ---
RN NOTE PATIENTS FAMILY BROUGHT FOOD FROM HOME. DUE TO NPO STATUS, PATIENT IS UNABLE TO CONSUME THE MEAL. FOOD WAS PLACED IN THE NUTRITION ROOM REFRIGERATOR WITH ID STICKER.
[2021-09-15 16:00] VITALS: BP 129/67
--- NOTE | 2021-09-15 16:26 | NUR ---
PATIENT TAKEN TO MRI
[2021-09-15] MEDS: LOSARTAN POTASSIUM 25 MG TABLET PO SCH (18:00)
--- NOTE | 2021-09-15 19:02 | NUR ---
VB NET PROGRAMMER CLOSING NOTE NO SIGNIFICANT CHANGES THROUGHOUT THE SHIFT. PT IS A/O X 4 MACEDONIAN SPEAKING. PT HAS R FOREARM #20G. ON NC 2L, TOLERATING WELL WITH O2 SAT OF 96%. NO SOB NOTED. NO S/SX OF ACUTE DISTRESS NOTED. PATIENT IS BED BOUND WITH A DIAPER. SKIN IS INTACT. KEPT DRY AND CLEAN, ALL NEEDS ATTENDED TO. ALL SAFETY MEASURES IMPLEMENTED. BED IN LOWEST POSITION, LOCKED IN PLACE. CALL LIGHT WITHIN REACH. WILL ENDORSE TO NIGHTSHIFT RN FOR VAL.
--- NOTE | 2021-09-15 19:12 | NUR ---
RN ADMIT OPENING NOTES RECEIVED PT IN BED AWAKE, ALERT AND ORIENTED X 4, WOLOF SPEAKING. ABLE TO MAKE NEEDS KNOWN. CURRENTLY ON ROOM AIR, TOLERATING WELL WITH NO S/SX OF ACUTE DISTRESS NOTED AT THIS TIME, ON TELE MONITORING. WITH IV ACCESS NOTED IN R FOREARM #20g, PATENT AND INTACT. ALL SAFETY MEASURES IN PLACE, CALL LIGHT WITHIN REACH. BED ALARM IS ON. BED IS LOCKED AND IN LOWEST POSITION, SIDE RAILS UP X 2. WILL CONTINUE TO MONITOR THROUGHOUT THE SHIFT.
[2021-09-15 20:00] VITALS: BP 138/63
[2021-09-15] MEDS: ENOXAPARIN SODIUM 40 MG/0.4 ML DISP.SYRIN SQ SCH (21:31)
[2021-09-16] VITALS: BP 106/53
[2021-09-16] MEDS: LEVOFLOXACIN 500 MG /D5W 100ML 500 MG in PREMIX 1 EA IV SCH (01:28)
--- NOTE | 2021-09-16 02:57 | NUR ---
RN NOTE INFORMED BOX PERSON BRIANDA SHAFFER ABOUT PT DIET STILL ON NPO SINCE YESTERDAY DUE TO MRCP PROCEDURE DONE 09/15 IN THE AFTERNOON. SHE SAID TO KEEP THE NPO STATUS UNTIL RESULTS OF MRCP GOT IN. CHARGE NURSE MADE AWARE. WILL CONT TO MONITOR.
[2021-09-16 04:00] VITALS: BP 123/57
--- NOTE | 2021-09-16 06:46 | NUR ---
WASTEWATER ANALYST CLOSING NOTE PT REMAINS STABLE THROUGHOUT MY SHIFT, RESTING COMFORTABLY IN BED, A/O X 4, MONEGASQUE SPEAKING. PT HAS R FOREARM #20G. ON NC 2L, TOLERATING WELL WITH O2 SAT OF 97%. NO SOB NOTED. NO S/SX OF ACUTE DISTRESS NOTED. ALL DUE MEDS GIVEN ORDERED. KEPT DRY AND CLEAN, ALL NEEDS ATTENDED. ALL SAFETY MEASURES IMPLEMENTED. BED IN LOWEST AND LOCKED POSITION. CALL LIGHT WITHIN REACH. WILL ENDORSE TO AM SHIFT NURSE.
[2021-09-16 07:39] LABS: BASOPHILS % (AUTO) 0.2 % (0.0-2.0); EOSINOPHILS % (AUTO) 2.2 % (0.0-6.0); HEMATOCRIT 33 % (33-45); HEMOGLOBIN 10.9 g/dL (11.5-14.8); LYMPHOCYTES # (AUTO) 0.9 K/uL (0.8-4.8); LYMPHOCYTES % (AUTO) 10.2 % (20.0-44.0); MEAN CORPUSCULAR HGB CONC 33 g/dl (31.0-36.0); MEAN CORPUSCULAR VOLUME 94 fL (82-100); MONOCYTES # (AUTO) 0.8 K/uL (0.1-1.30); NEUTROPHILS # (AUTO) 7.1 K/uL (1.8-8.9); NEUTROPHILS % (AUTO) 78.4 % (43.0-81.0); PLATELET COUNT (AUTO) 234 K/uL (150-450); RED BLOOD CELL COUNT(AUTO) 3.46 MIL/uL (4.0-5.2); WHITE BLOOD COUNT (AUTO) 9.1 K/uL (4.3-11.0)
[2021-09-16] MEDS: LEVOTHYROXINE SODIUM 75 MCG TABLET PO SCH (07:50)
[2021-09-16] MEDS: PANTOPRAZOLE 40 MG TABLET.DR PO SCH (07:50)
--- NOTE | 2021-09-16 07:56 | NUR ---
RN NOTE PT RECEIVED IN BED, ALERT AND VERBALLY RESPONSIVE. ON O2 @2L VIA NC, TOLERATING WELL. NO COMPLAINTS OF PAIN AND DISCOMFORT. WITH IV ACCESS ON RFA G20 WITH NO FLUIDS RUNNING. SAFETY MEASURES FOLLOWED. WILL CONTINUE TO MONITOR.
[2021-09-16 08:00] VITALS: BP 133/64
[2021-09-16 08:24] LABS: ALANINE AMINOTRANSFERASE 87 U/L (12-78); ALBUMIN 1.8 g/dL (3.4-5.0); ALKALINE PHOSPHATASE 229 U/L (46-116); ASPARTATE AMINOTRANSFERASE 38 U/L (15-37); BILIRUBIN,TOTAL 1.1 mg/dL (0.2-1.0); CALCIUM, SERUM 8.1 mg/dL (8.5-10.1); CARBON DIOXIDE 31 mmol/L (21-32); CHLORIDE 99 mmol/L (98-107); CREATININE 0.6 mg/dL (0.6-1.3); GLUCOSE 92 mg/dL (74-106); PHOSPHORUS 4.2 mg/dL (2.5-4.9); POTASSIUM 3.6 mmol/L (3.5-5.1); SODIUM SERUM 134 mmol/L (136-145); TOTAL PROTEIN, SERUM 5.9 g/dL (6.4-8.2); UREA NITROGEN, BLOOD 15 mg/dL (7-18)
[2021-09-16 08:41] LABS: C-REACTIVE PROTEIN 16.4 mg/dL (0.0-0.9)
[2021-09-16] MEDS: LOSARTAN POTASSIUM 50 MG TABLET PO SCH (09:09)
[2021-09-16] MEDS: ASPIRIN 81 MG TAB.CHEW PO SCH (09:09)
[2021-09-16] MEDS: AMLODIPINE BESYLATE 10 MG TABLET PO SCH (09:09)
[2021-09-16] MEDS: CALCIUM CARBONATE (1250) 500 MG TABLET PO SCH (09:09)
[2021-09-16] MEDS: DULOXETINE HCL 20 MG CAPSULE.DR PO SCH (09:10)
[2021-09-16] MEDS: ropiniROLE 0.5 MG TABLET PO SCH (09:10)
[2021-09-16] MEDS: ESCITALOPRAM OXALATE (10 MG) 10 MG TABLET PO SCH (09:11)
[2021-09-16 12:00] VITALS: BP 133/64
[2021-09-16 16:00] VITALS: BP 113/57
[2021-09-16] MEDS: LOSARTAN POTASSIUM 25 MG TABLET PO SCH (17:44)
--- NOTE | 2021-09-16 18:01 | NUR ---
RN NOTE PT RESTING IN BED, ALERT AND VERBALLY RESPONSIVE. ON O2 @2L VIA NC, TOLERATING WELL. NO COMPLAINTS OF PAIN AND DISCOMFORT. WITH IV ACCESS ON RFA G20 WITH NO FLUIDS RUNNING. PT DIET CHANGED TO CLEAR LIQUIDS AND UPGRADE TOLERATED. DUE MEDICATIONS GIVEN, AM AND PM CARE DONE. SAFETY MEASURES FOLLOWED. WILL CONTINUE TO MONITOR AND ENDORSE TO NEXT SHIFT.
[2021-09-16 20:00] VITALS: BP_SYST 130; BP_SYST 139; BP_DIAS 69; BP_DIAS 72
[2021-09-16] MEDS: ENOXAPARIN SODIUM 40 MG/0.4 ML DISP.SYRIN SQ SCH (21:35)
[2021-09-17] MEDS: LEVOFLOXACIN 500 MG /D5W 100ML 500 MG in PREMIX 1 EA IV SCH (02:52)
[2021-09-17 04:00] VITALS: BP 132/66
--- NOTE | 2021-09-17 06:40 | NUR ---
RN CLOSING NOTES, PATIENT IN BED AWAKE A/OX4, LUXEMBOURGISH SPEAKING, ABLE TO VERBALIZE NEEDS AND CONCERNS, ON O2 2LPM AT THIS TIME, NO SOB/DISTRESS NOTED, NO SIGNIFICANT CHANGE IN CONDITION DURING THE NIGHT, WITH STABLE VIAL SINGS, BED LOCKED AN DIN LOWEST POSITION, CALL LIGHT W/I REACH, CONTINUE ON ANTIBIOTICS, DC PLANNING WHEN MEDICALLY CLEARED, WILL ENDORSE CONTINUITY OF CARE TO ONCOMING NURSE..
--- NOTE | 2021-09-17 07:35 | NUR ---
RN NOTE PT RECEIVED ASLEEP IN BED, RESPONSIVE TO STIMULI. ON O2 @2L VIA NC, TOLERATING WELL. NO COMPLAINTS OF PAIN AND DISCOMFORT. WITH IV ACCESS ON RFA G20 WITH NO FLUIDS RUNNING. SAFETY MEASURES FOLLOWED. WILL CONTINUE TO MONITOR.
[2021-09-17] MEDS: PANTOPRAZOLE 40 MG TABLET.DR PO SCH (07:45)
[2021-09-17] MEDS: LEVOTHYROXINE SODIUM 75 MCG TABLET PO SCH (07:45)
[2021-09-17 08:00] VITALS: BP 149/69
[2021-09-17] MEDS: ropiniROLE 0.5 MG TABLET PO SCH (09:02)
[2021-09-17] MEDS: ASPIRIN 81 MG TAB.CHEW PO SCH (09:03)
[2021-09-17] MEDS: ESCITALOPRAM OXALATE (10 MG) 10 MG TABLET PO SCH (09:03)
[2021-09-17] MEDS: DULOXETINE HCL 20 MG CAPSULE.DR PO SCH (09:03)
[2021-09-17] MEDS: LOSARTAN POTASSIUM 50 MG TABLET PO SCH (09:03)
[2021-09-17] MEDS: CALCIUM CARBONATE (1250) 500 MG TABLET PO SCH (09:03)
[2021-09-17] MEDS: AMLODIPINE BESYLATE 10 MG TABLET PO SCH (09:03)
[2021-09-17 12:00] VITALS: BP 149/69
--- NOTE | 2021-09-17 14:42 | NUR ---
RN NOTE PT O2 SAT IN ROOM AIR 87%. PT PLACED BACK ON O2 VIA NC WITH O2 SAT 95%. NO SOB NOTED.
[2021-09-17 16:00] VITALS: BP 119/61
[2021-09-17] MEDS: LOSARTAN POTASSIUM 25 MG TABLET PO SCH (17:54)
--- NOTE | 2021-09-17 18:30 | NUR ---
RN NOTE PT RESTING IN BED, ALERT AND VERBALLY RESPONSIVE. ON O2 @2L VIA NC, TOLERATING WELL. NO COMPLAINTS OF PAIN AND DISCOMFORT. WITH IV ACCESS ON RFA G20 WITH NO FLUIDS RUNNING. DUE MEDICATIONS GIVEN, AM AND PM CARE DONE. SAFETY MEASURES FOLLOWED. WILL CONTINUE TO MONITOR AND ENDORSE TO NEXT SHIFT.
--- NOTE | 2021-09-17 19:33 | NUR ---
GROUNDS KEEPER OPENING NOTES RECEIVED PT IN BED AWAKE, ALERT AND ORIENTED X 4, FRENCH SPEAKING. ABLE TO MAKE NEEDS KNOWN. CURRENTLY ON O2 VIA NC AT 2L, TOLERATING WELL WITH NO S/SX OF ACUTE DISTRESS NOTED AT THIS TIME, ON TELE MONITORING. WITH IV ACCESS NOTED IN R FOREARM #20g, PATENT AND INTACT. ALL SAFETY MEASURES IN PLACE, CALL LIGHT WITHIN REACH. BED ALARM IS ON. BED IS LOCKED AND IN LOWEST POSITION, SIDE RAILS UP X 2. WILL CONTINUE TO MONITOR THROUGHOUT THE SHIFT.
[2021-09-17 20:00] VITALS: BP 125/62
[2021-09-17] MEDS: ENOXAPARIN SODIUM 40 MG/0.4 ML DISP.SYRIN SQ SCH (20:32)
[2021-09-18] VITALS: BP 121/67
[2021-09-18 04:00] VITALS: BP 121/59
--- NOTE | 2021-09-18 06:33 | NUR ---
WATCHSTANDER CLOSING NOTES PT IN BED AWAKE, ALERT AND ORIENTED X 4, RWANDAN SPEAKING. ABLE TO MAKE NEEDS KNOWN. CURRENTLY ON O2 VIA NC AT 2L, TOLERATING WELL WITH NO S/SX OF ACUTE DISTRESS NOTED AT THIS TIME. WITH IV ACCESS NOTED IN R FOREARM #20g, PATENT AND INTACT. ALL SAFETY MEASURES IN PLACE, ALL DUE MEDS GIVEN, KEPT DRY AND CLEAN, CALL LIGHT WITHIN REACH. BED ALARM IS ON. BED IS LOCKED AND IN LOWEST POSITION, SIDE RAILS UP X 2. WILL ENDORSE TO AM SHIFT NURSE.
--- NOTE | 2021-09-18 07:30 | NUR ---
MS RN OPENING NOTES RECEIVED PT ASLEEP IN BED, EASILY AROUSED. ALERT AND ORIENTED X 4, ABLE TO MAKE NEEDS KNOWN. ON O2 AT 2L/MIN VIA N/C TOLERATING WELL. NOT IN ANY SIGN OF RESPIRATORY DISTRESS. IV ACCESS IN RFA G #20 INTACT AND PATENT. ISOLATION PRECAUTION IN PLACE. ALL SAFETY MEASURES IN PLACE. BED IN LOWEST POSITION AND LOCKED. SIDE RAILS UP X2, BED ALARM IN PLACE. CALL LIGHT WITHIN REACH. WILL CONTINUE TO MONITOR PT.
[2021-09-18] MEDS: PANTOPRAZOLE 40 MG TABLET.DR PO SCH (07:48)
[2021-09-18] MEDS: LEVOTHYROXINE SODIUM 75 MCG TABLET PO SCH (07:48)
[2021-09-18] MEDS: CALCIUM CARBONATE (1250) 500 MG TABLET PO SCH (09:00)
[2021-09-18] MEDS: ropiniROLE 0.5 MG TABLET PO SCH (09:00)
[2021-09-18] MEDS: ASPIRIN 81 MG TAB.CHEW PO SCH (09:00)
[2021-09-18] MEDS: LOSARTAN POTASSIUM 50 MG TABLET PO SCH (09:01)
[2021-09-18] MEDS: AMLODIPINE BESYLATE 10 MG TABLET PO SCH (09:02)
[2021-09-18] MEDS: DULOXETINE HCL 20 MG CAPSULE.DR PO SCH (09:02)
[2021-09-18] MEDS: ESCITALOPRAM OXALATE (10 MG) 10 MG TABLET PO SCH (09:02)
[2021-09-18 12:00] VITALS: BP 120/58
[2021-09-18] MEDS ORDERED: ASPI-1169 PO (12:18)
[2021-09-18 17:47] VITALS: BP 119/66
[2021-09-18] MEDS: LOSARTAN POTASSIUM 25 MG TABLET PO SCH (17:47)
--- NOTE | 2021-09-18 18:56 | NUR ---
MS RN CLOSING NOTES PT ASLEEP IN BED, EASILY AROUSED. ALERT AND ORIENTED X 4, ABLE TO MAKE NEEDS KNOWN. ON O2 AT 2L/MIN VIA N/C TOLERATING WELL. NOT IN ANY SIGN OF RESPIRATORY DISTRESS. IV ACCESS IN RFA G #20 INTACT AND PATENT. PT WILL BE DISCHARGED, AWAITING FOR THE TRANSPORTATION AMBULANCE. ALL DISCHARGED PAPERS COMPLETED. WILL ENDORSE TO [facility] SHIFT NURSE OF DISCHARGE. ALL NEEDS ATTENDED. KEPT CLEAN AND COMFORTABLE. ALL SAFETY MEASURES IN PLACE. BED IN LOWEST POSITION AND LOCKED. SIDE RAILS UP X2, BED ALARM IN PLACE. CALL LIGHT WITHIN REACH.
--- NOTE | 2021-09-18 19:43 | NUR ---
MS CRYSTAL REPORT DEVELOPER NOTE PATIENT PICKED UP BY 2 EMT PERSONNEL AT AROUND 1900 DURING [facility] REPORT. PATIENT GOING HOME WITH OXYGEN. NO S/S OF APPARENT DISTRESS ON 2LPM VIA NC. NO C/O PAIN AND DISCOMFORT. PATIENT IN HER CASUAL CLOTHES, IV LINE REMOVED. ID BAND REMOVED. BELONGINGS ACCOUNTED FOR. DISCHARGE PAPERS SIGNED AND WITH PATIENT. PATIENT IS IN STABLE CONDITION AT THE TIME OF DISCHARGE.
== END 2021-09-18 19:30 | disposition home or self-care (01) | DRG 177 ==
LOC: TELE 22:56 → TELE1 23:56 → MEDSG1 09-16 09:21
PROVIDERS: ADMIT Student in an Organized Health Care Education/Training Program; ATTEND Internal Medicine
DX: U07.1 COVID-19 (principal); J96.01 Acute respiratory failure with hypoxia; I50.32 Chronic diastolic (congestive) heart failure; E87.1 Hypo-osmolality and hyponatremia; J84.9 Interstitial pulmonary disease, unspecified; K86.1 Other chronic pancreatitis; I11.0 Hypertensive heart disease with heart failure; Z20.822 Contact with and (suspected) exposure to COVID-19; R74.01 Elevation of levels of liver transaminase levels; F02.80 Dementia in other diseases classified elsewhere, unspecified severity, without behavioral disturbance, psychotic disturbance, mood disturbance, and anxiety; G30.9 Alzheimer's disease, unspecified; E66.9 Obesity, unspecified; F09 Unspecified mental disorder due to known physiological condition; Z68.29 Body mass index [BMI] 29.0-29.9, adult; Z79.82 Long term (current) use of aspirin; Z79.51 Long term (current) use of inhaled steroids; Z79.899 Other long term (current) drug therapy
CPT/HCPCS: 36415; 36600; 71045-TC; 71250-TC; 74181-TC; 80048-TC; 80053-TC; 80061-TC; 80074; 80076-TC; 82140-TC; 82728-TC; 82803-TC; 83605-TC; 83615-TC; 83690-TC; 83735-TC; 84100-TC; 84443-TC; 84484-TC; 85025-TC; 85378-TC; 85610-TC; 86140-TC; 87040-TC; 87081-TC; 87086-TC; 93307-TC; 94799-TC; 97530-TC; A4216; G0378; J0360; J1650; J1956; J2060; J7030; J7050; U0003